=== PATIENT | female | born 1975 | race Caucasian/White ===

== ENCOUNTER 2022-04-06 06:31 | Emergency (ER) | payer OTHER ==
[~2022-04-06] VITALS: Ht 157.5 cm; Wt 104.3 kg
[2022-04-06 06:39] VITALS: BP_SYST 139
--- NOTE | 2022-04-06 06:39 | NUR ---
Patient to ER bed 8 to gown for evaluation. Side rails up. Report given to Kiki RUSSELL.
--- NOTE | 2022-04-06 06:40 | NUR ---
PT COMING FROM WORK AFTER [facility] TRIP AND FALL IN [place] [facility]. PT REPORTS TRIPPING ON THE FLOOR, REPORTS KNEE, WRIST AND ABD PAIN 8/10. PT DENIES HEAD TRUAMA, LOC, AND KO. SAFETY PRECAUTIONS IN PLACE.
--- NOTE | 2022-04-06 06:40 | NUR ---
DR. REYES AT BEDSIDE WITH PATIENT FOR MSE.
[2022-04-06] MEDS ORDERED: NAPR-688 PO (06:44)
--- NOTE | 2022-04-06 07:07 | NUR ---
REPORT GIVEN TO RADHA LUX TO ASSUME CARE.
--- NOTE | 2022-04-06 07:17 | NUR ---
Patient given written and verbal discharge instructions and verbalizes understanding. ER MD discussed with patient the results and treatment provided. Patient in stable condition. ID arm band removed. Rx of NAPROXEN given. Patient educated on pain management and to follow up with PMD. Opportunity for questions provided and answered. Medication side effect fact sheet provided.
[2022-04-06 07:19] VITALS: BP_SYST 139
== END 2022-04-06 07:17 | disposition home or self-care (01) ==
LOC: SED 06:31
DX: S20.212A Contusion of left front wall of thorax, initial encounter (principal); Z79.899 Other long term (current) drug therapy; W01.0XXA Fall on same level from slipping, tripping and stumbling without subsequent striking against object, initial encounter; Y93.89 Activity, other specified; Y92.89 Other specified places as the place of occurrence of the external cause; Y99.8 Other external cause status
CPT/HCPCS: 71045; 71100; 99284

== ENCOUNTER 2022-07-03 12:00 | Emergency (ER) | payer OTHER ==
[~2022-07-03] VITALS: Ht 157.5 cm; Wt 106.6 kg
[~2022-07-03 12:00] MED LIST: NAPR-688 PO
[2022-07-03 12:13] VITALS: BP_SYST 149
[2022-07-03] MEDS ORDERED: AMOX875T2 PO (12:25)
[2022-07-03] MEDS ORDERED: IBUP-1971 PO (12:26)
[2022-07-03] MEDS ORDERED: PSEU120T57 PO (12:26)
[2022-07-03] MEDS ORDERED: AMOXICILLIN 500 MG CAPSULE PO ONE (12:30)
[2022-07-03] MEDS ORDERED: KETOROLAC TROMETHAMINE 60 MG/2 ML VIAL IM ONE (12:30)
[2022-07-03 21:33] VITALS: BP_SYST 149
== END 2022-07-03 21:33 | disposition home or self-care (01) ==
LOC: SED 12:00
DX: H66.92 Otitis media, unspecified, left ear (principal); H92.02 Otalgia, left ear; Z88.5 Allergy status to narcotic agent; Z79.899 Other long term (current) drug therapy
CPT/HCPCS: 99283; 96372; J1885

== ENCOUNTER 2022-11-13 07:51 | Emergency (ER) | payer OTHER ==
[~2022-11-13] VITALS: Ht 157.5 cm; Wt 104.3 kg
[~2022-11-13 07:51] MED LIST changes: +AMOX875T2 PO; +IBUP-1971 PO; +PSEU120T57 PO
[2022-11-13 08:00] VITALS: BP_SYST 111; PULSE 79; RESP 20; TEMP 98.3; O2SAT 98
[2022-11-13 08:18] LABS: BASOPHILS # (AUTO) 0.1 K/uL (0.0-0.2); EOSINOPHILS # (AUTO) 0.4 K/uL (0.0-0.4); EOSINOPHILS % (AUTO) 2.9 % (0.0-4.0); HEMATOCRIT 40.1 % (36-48); HEMOGLOBIN 13.4 g/dL (12.0-16.0); LYMPHOCYTES # (AUTO) 3.1 K/uL (1.0-5.5); LYMPHOCYTES % (AUTO) 25.5 % (20.5-51.5); MEAN CORPUSCULAR HEMOGLOBIN 28 pg (27-31); MEAN CORPUSCULAR HGB CONC 34 % (32-36); MEAN CORPUSCULAR VOLUME 85 fL (79.0-98.0); MONOCYTES # (AUTO) 0.8 K/uL (0.0-1.0); MONOCYTES % (AUTO) 6.6 % (1.7-9.3); NEUTROPHILS # (AUTO) 7.8 K/uL (1.8-7.7); PLATELET COUNT (AUTO) 231 K/uL (130-430); RED BLOOD CELL COUNT(AUTO) 4.73 MIL/uL (4.2-6.2); WHITE BLOOD COUNT (AUTO) 12.2 K/uL (4.8-10.8)
[2022-11-13 08:41] LABS: ALANINE AMINOTRANSFERASE 58 U/L (12-78); ANION GAP 10 (5-15); ASPARTATE AMINOTRANSFERASE 19 U/L (10-37); CALCIUM 8.9 mg/dL (8.4-11.0); CARBON DIOXIDE 29 mmol/L (23-29); CHLORIDE 101 mmol/L (98-107); GFR AFRICAN AMERICAN 68 mL/min (>90); GLUCOSE 200 mg/dL (74-106); POTASSIUM 3.8 mmol/L (3.5-5.1); SODIUM SERUM 140 mmol/L (136-145); TOTAL BILIRUBIN 0.4 mg/dL (0.0-1.0); UREA NITROGEN, BLOOD 15 mg/dL (8-21)
[2022-11-13 08:45] LABS: GFR NON AFRICAN-AMERICAN 56 mL/min (>90)
[2022-11-13 08:58] VITALS: BP_SYST 111; PULSE 79; RESP 20; TEMP 98.3; O2SAT 98
== END 2022-11-13 09:00 | disposition home or self-care (01) ==
LOC: SED 07:51
DX: R07.9 Chest pain, unspecified (principal); R06.02 Shortness of breath; M79.602 Pain in left arm; Z88.5 Allergy status to narcotic agent; Z79.899 Other long term (current) drug therapy
CPT/HCPCS: 36415; 71045; 80053; 83880; 84484; 85025; 93005; 99285

== ENCOUNTER 2022-12-23 09:50 | Emergency (ER) | payer OTHER ==
[~2022-12-23] VITALS: Ht 157.5 cm; Wt 106.6 kg
[2022-12-23 09:50] VITALS: PULSE 85; RESP 20; TEMP 97; O2SAT 98
[2022-12-23 10:22] LABS: BASOPHILS # (AUTO) 0.1 K/uL (0.0-0.2); BASOPHILS % (AUTO) 0.6 % (0.0-2.0); EOSINOPHILS # (AUTO) 0.3 K/uL (0.0-0.4); EOSINOPHILS % (AUTO) 3.4 % (0.0-4.0); HEMOGLOBIN 13.1 g/dL (12.0-16.0); LYMPHOCYTES # (AUTO) 2.7 K/uL (1.0-5.5); LYMPHOCYTES % (AUTO) 27.5 % (20.5-51.5); MEAN CORPUSCULAR HEMOGLOBIN 28 pg (27-31); MEAN CORPUSCULAR HGB CONC 34 % (32-36); MEAN CORPUSCULAR VOLUME 84 fL (79.0-98.0); MONOCYTES # (AUTO) 0.4 K/uL (0.0-1.0); MONOCYTES % (AUTO) 4.5 % (1.7-9.3); NEUTROPHILS # (AUTO) 6.2 K/uL (1.8-7.7); PLATELET COUNT (AUTO) 227 K/uL (130-430); RED BLOOD CELL COUNT(AUTO) 4.66 MIL/uL (4.2-6.2); RED CELL DISTRIBUTION WIDTH 14.3 % (9.0-15.0); WHITE BLOOD COUNT (AUTO) 9.6 K/uL (4.8-10.8)
[2022-12-23 10:38] LABS: SERUM HCG (QUALITATIVE) NEGATIVE (NEGATIVE)
[2022-12-23 10:40] LABS: ANION GAP 10 (5-15); CALCIUM 8.7 mg/dL (8.4-11.0); CARBON DIOXIDE 26 mmol/L (23-29); CHLORIDE 101 mmol/L (98-107); CREATININE 1.03 mg/dL (0.55-1.30); GFR AFRICAN AMERICAN 73 mL/min (>90); GLUCOSE 290 mg/dL (74-106); POTASSIUM 3.8 mmol/L (3.5-5.1); SODIUM SERUM 137 mmol/L (136-145); UREA NITROGEN, BLOOD 16 mg/dL (8-21)
[2022-12-23 10:43] LABS: GFR NON AFRICAN-AMERICAN 61 mL/min (>90)
[2022-12-23 10:54] LABS: ALANINE AMINOTRANSFERASE 49 U/L (12-78); ALBUMIN 3.1 g/dL (3.4-4.8); ASPARTATE AMINOTRANSFERASE 16 U/L (10-37); FREE T4 (FREE THYROXINE) 1.2 ng/dL (0.6-1.6); THYROID STIMULATING HORMONE 1.59 uIu/mL (0.34-4.82); TOTAL BILIRUBIN 0.4 mg/dL (0.0-1.0)
[2022-12-23 12:05] LABS: HEMOGLOBIN A1C 8.08 % (<5.7)
[2022-12-23 12:23] LABS: ACETONE, SERUM NEGATIVE (NEGATIVE)
== END 2022-12-23 12:35 | disposition home or self-care (01) ==
LOC: SED 09:50
DX: R73.9 Hyperglycemia, unspecified (principal); R53.1 Weakness; Z88.5 Allergy status to narcotic agent; Z79.899 Other long term (current) drug therapy
CPT/HCPCS: 36415; 80053; 82009; 83037; 83605; 84439; 84443; 84484; 84703; 85025; 99283

== ENCOUNTER 2023-03-16 08:27 | Emergency (ER) | payer OTHER ==
[~2023-03-16] VITALS: Ht 167.6 cm; Wt 99.8 kg
[2023-03-16 08:53] VITALS: BP_SYST 110; PULSE 85; RESP 22; TEMP 98.3; O2SAT 98
[2023-03-16 09:13] LABS: BASOPHILS # (AUTO) 0.2 K/uL (0.0-0.2); BASOPHILS % (AUTO) 1.3 % (0.0-2.0); EOSINOPHILS # (AUTO) 0.4 K/uL (0.0-0.4); HEMATOCRIT 40.2 % (36-48); HEMOGLOBIN 13.3 g/dL (12.0-16.0); LYMPHOCYTES # (AUTO) 2.9 K/uL (1.0-5.5); LYMPHOCYTES % (AUTO) 24.6 % (20.5-51.5); MEAN CORPUSCULAR HEMOGLOBIN 28 pg (27-31); MEAN CORPUSCULAR HGB CONC 33 % (32-36); MEAN CORPUSCULAR VOLUME 83 fL (79.0-98.0); MONOCYTES # (AUTO) 0.4 K/uL (0.0-1.0); MONOCYTES % (AUTO) 3.7 % (1.7-9.3); NEUTROPHILS % (AUTO) 67.4 % (40.0-70.0); PLATELET COUNT (AUTO) 272 K/uL (130-430); RED BLOOD CELL COUNT(AUTO) 4.83 MIL/uL (4.2-6.2); RED CELL DISTRIBUTION WIDTH 14.3 % (9.0-15.0); WHITE BLOOD COUNT (AUTO) 11.9 K/uL (4.8-10.8)
[2023-03-16 09:24] LABS: CALCIUM 9.7 mg/dL (8.4-11.0); CREATININE 1.03 mg/dL (0.55-1.30); POTASSIUM 3.9 mmol/L (3.5-5.1)
[2023-03-16 09:31] LABS: HEMOGLOBIN A1C 6.92 % (<5.7)
[2023-03-16 09:36] LABS: ALBUMIN 3.1 g/dL (3.4-4.8); BILIRUBIN,DIRECT 0.1 mg/dL (0.0-0.3); FREE T4 (FREE THYROXINE) 1.2 ng/dL (0.6-1.6); THYROID STIMULATING HORMONE 1.49 uIu/mL (0.34-4.82); TOTAL BILIRUBIN 0.3 mg/dL (0.0-1.0); TOTAL PROTEIN, SERUM 8.1 g/dL (6.4-8.3)
[2023-03-16 10:35] VITALS: BP_SYST 110; PULSE 85; RESP 22; TEMP 98.3; O2SAT 98
[2023-03-17 10:06] LABS: FOLATE (FOLIC ACID) 7.9 ng/mL (>3.0)
== END 2023-03-16 10:34 | disposition home or self-care (01) ==
LOC: SED 08:27
DX: Z00.00 Encounter for general adult medical examination without abnormal findings (principal); Z88.5 Allergy status to narcotic agent; Z79.899 Other long term (current) drug therapy
CPT/HCPCS: 36415; 80048; 80061; 80076; 82306; 82607; 82746; 83037; 84439; 84443; 85025; 99283